=== PATIENT | male | born 1995 | race African-American/Black ===

== ENCOUNTER 2018-09-09 19:26 | Emergency (ER) | payer MEDICAID, OTHER ==
[~2018-09-09] VITALS: Ht 175.3 cm; Wt 77.0 kg
[2018-09-09] MEDS ORDERED: IBUPROFEN 600MG TABLET PO ONE (22:30)
[2018-09-09 22:36] VITALS: BP 126/68
== END 2018-09-09 22:36 | disposition home or self-care (01) ==
LOC: ER 19:26
DX: S39.012A Strain of muscle, fascia and tendon of lower back, initial encounter (principal); F12.10 Cannabis abuse, uncomplicated; F17.210 Nicotine dependence, cigarettes, uncomplicated; V43.62XA Car passenger injured in collision with other type car in traffic accident, initial encounter; Y93.89 Activity, other specified; Y92.488 Other paved roadways as the place of occurrence of the external cause
CPT/HCPCS: 99282